=== PATIENT | male | born 1960 | race Caucasian/White ===

== ENCOUNTER 2019-07-29 23:30 | Emergency (ER) | payer OTHER ==
[~2019-07-29] VITALS: Ht 182.9 cm; Wt 93.0 kg
[~2019-07-29 23:30] MED LIST: FORTAMET1000 MG
== END 2019-07-30 09:27 | disposition home or self-care (01) ==
LOC: ER 23:30
DX: T21.12XA Burn of first degree of abdominal wall, initial encounter (principal); L03.311 Cellulitis of abdominal wall; X11.8XXA Contact with other hot tap-water, initial encounter; Y93.89 Activity, other specified; Y92.89 Other specified places as the place of occurrence of the external cause; Y99.8 Other external cause status